=== PATIENT | female | born 1990 | race Caucasian/White ===

== ENCOUNTER 2018-10-07 15:27 | Emergency (ER) | payer MEDICAID ==
[~2018-10-07] VITALS: Ht 170.2 cm; Wt 61.4 kg
[2018-10-07 15:40] VITALS: BP 115/62
[2018-10-07] MEDS ORDERED: PENI500T2 PO (16:35)
[2018-10-07] MEDS ORDERED: penicillin V potassium 500mg tablet PO ONE (16:35)
[2018-10-07] MEDS ORDERED: HYDROcodone/acetaminophen 10/325mg tab PO ONE (16:35)
[2018-10-07] MEDS ORDERED: IBUP-1985 PO (16:35)
== END 2018-10-07 16:45 | disposition home or self-care (01) ==
LOC: ER 15:28
DX: K04.7 Periapical abscess without sinus (principal); Z79.899 Other long term (current) drug therapy
CPT/HCPCS: 99283

== ENCOUNTER 2024-09-20 15:17 | Emergency (ER) | payer OTHER, MEDICAID ==
[~2024-09-20] VITALS: Ht 170.2 cm; Wt 65.3 kg
[~2024-09-20 15:17] MED LIST: IBUP-1985 PO
[2024-09-20] MEDS: dexamethasone sod phosphate 10mg/ml inj IM STA (16:31)
[2024-09-20] MEDS: ketorolac trometh 30MG/ML vial 30 MG/ML VIAL IM ONE (16:31)
[2024-09-20] MEDS: cyclobenzaprine 10mg tablet PO ONE (16:31)
[2024-09-20] MEDS ORDERED: CYCL-1 PO (16:33)
[2024-09-20] MEDS ORDERED: LIDO700A32 TOP (16:33)
[2024-09-20] MEDS: HYDROcodone/acetaminophen 5mg/325mg tablet PO ONE (16:37)
[2024-09-20] MEDS: ondansetron 4mg rapidly disintigrating tab PO ONE (16:37)
[2024-09-20 16:39] VITALS: BP 142/88; PULSE 88; RESP 18; TEMP 98.5; O2SAT 99
== END 2024-09-20 16:42 | disposition home or self-care (01) ==
LOC: ER 15:17
DX: M54.50 Low back pain, unspecified (principal); M54.6 Pain in thoracic spine; Z79.1 Long term (current) use of non-steroidal anti-inflammatories (NSAID); V89.2XXA Person injured in unspecified motor-vehicle accident, traffic, initial encounter; Y93.89 Activity, other specified; Y92.89 Other specified places as the place of occurrence of the external cause; Y99.8 Other external cause status
CPT/HCPCS: 72070; 72100; 96372; 99284; J1100; J1885